=== PATIENT | female | born 1985 | race Caucasian/White ===

== ENCOUNTER → 2019-05-17 13:53 | Outpatient (CLI) | payer OTHER, SELFPAY ==
--- NOTE | 2019-05-17 | DI.US.S_ITS ---
PROCEDURE: US ABDOMEN COMPLETE INDICATIONS: UNSPECIFIED CIRRHOSIS TECHNIQUE: Real-time scanning was performed of the abdominal and retroperitoneal organs, with image documentation. COMPARISON: None. FINDINGS: Liver: Liver is normal in size and homogeneous in echotexture. Gallbladder: The gallbladder contains multiple polyps with the largest measuring up to 6 mm in size. No gallbladder wall thickening. No pericholecystic fluid. Negative sonographic Fleming's. Biliary ducts: Intrahepatic bile ducts are non-dilated. Extrahepatic bile duct caliber measures 5 mm. Normal is 6-7 mm or less in diameter, or 10 mm or less post-cholecystectomy. Pancreas: Visualized portions of the pancreas are sonographically normal. Spleen: Spleen is normal in size and homogeneous in echotexture. Kidneys: Kidneys are normal in size and echotexture. Right kidney measures 9.9 cm long; left kidney measures 11.2 cm long. No hydronephrosis or nephrolithiasis. However, there is mild increased echogenicity involving the bilateral renal medulla consistent with medullary nephrocalcinosis. No solid masses. Aorta: Visualized aorta is normal in caliber at less than 3 cm. Iliacs: Proximal common iliac arteries are normal in caliber at less than 2.5 cm. IVC: Intrahepatic inferior vena cava is patent. Miscellaneous: No free abdominal fluid. IMPRESSION: 1. Multiple gallbladder polyps measuring up to 6 mm in size. Based on size criteria, no specific imaging followup required. No evidence for acute cholecystitis. 2. Mild hyperechogenicity of the bilateral renal medulla possibly representing medullary nephrocalcinosis. Dictated by: Milton Velazquez M.D. on 05/17/2019 at 15:36 Approved by: Milton Velazquez M.D. on 05/17/2019 at 15:47
--- NOTE | 2019-05-17 | DI.RAD.S_ITS ---
PROCEDURE: XR SHOULDER LT MIN 2V INDICATIONS: LT SHOULDER PAIN TECHNIQUE: 3 views of the shoulder were acquired. COMPARISON: None. FINDINGS: Bones: No fractures or dislocations. No suspicious bony lesions. Visualized ribs appear intact. Soft tissues: No suspicious soft tissue calcifications. IMPRESSION: No significant osseous abnormality. Dictated by: Reginald VERA Interpreted: Steve Roy MD on 05/17/2019 at 15:00 Approved by: Steve Roy M.D. on 05/17/2019 at 15:40
== END ==
PROVIDERS: PCP Family Medicine; Visit Provider Family Medicine
DX: K74.60 Unspecified cirrhosis of liver (principal); M25.512 Pain in left shoulder; K82.4 Cholesterolosis of gallbladder
CPT/HCPCS: 73030; 76700

== ENCOUNTER → 2019-07-22 12:56 | Outpatient (CLI) | payer OTHER, SELFPAY ==
[2019-07-22 13:33] LABS: Appearance Urine UA CLEAR; Bilirubin Urine UA NEGATIVE (NEGATIVE); Color Urine UA YELLOW; Glucose Urine UA NEGATIVE (Negative); Ketones Urine UA NEGATIVE (NEGATIVE); Leukocyte Esterase Urine UA TRACE (NEGATIVE); Nitrite Urine UA NEGATIVE (Negative); Occult Blood Urine UA NEGATIVE (Negative); Protein Urine UA NEGATIVE (Negative); Specific Gravity Urine UA <=1.005 (1.000-1.035); Urobilinogen Urine UA 0.2 E.U./dL (0.2)
[2019-07-22 13:37] LABS: Add Manual Diff / Slide Review NO; Basophils Absolute Auto 0 /uL (0-100); Basophils Percent Auto 0.3 % (0-2); Eosinophils Absolute Auto 100 /uL (0-450); Eosinophils Percent Auto 1.4 % (2-4); Hematocrit 34.8 % (36-46); Hemoglobin 11.9 g/dL (12.0-16.0); Lymphocytes Absolute Auto 1700 /uL (1100-4500); Lymphocytes Percent Auto 16.2 % (25-40); Mean Corpuscular HGB Conc 34.3 % (30-36); Mean Corpuscular Hemoglobin 28.8 PG (26-34); Mean Corpuscular Volume 84.2 fL (80-100); Monocytes Absolute Auto 500 /uL (0-900); Monocytes Percent Auto 5.1 % (3-14); Neutrophils Absolute Auto 7900 /uL (1500-7000); Platelet Count 283 X10^3/uL (150-400); Red Blood Cell Count 4.13 X10^6/uL (4.0-5.2); Red Cell Distribution Width 13.2 % (11.6-14.8); White Blood Cell Count 10.3 X10^3/uL (4.5-11.0)
[2019-07-22 13:42] LABS: Bacteria Urine None Seen; RBC Urine None Seen (0-5/HPF)
[2019-07-22 13:43] LABS: Culture Indicated Urine Cult Not Indicated; WBC Urine 0-1/HPF (0-5/HPF)
[2019-07-22 14:44] LABS: Alanine Aminotransferase 20 IU/L (<35); Albumin Globulin Ratio 1.7 (1.0-2.8); Alkaline Phosphatase 56 U/L (38-126); Aspartate Aminotransferase 26 IU/L (14-36); Bilirubin Total 0.4 mg/dL (0.2-1.3); Bilirubin Unconjugated 0.3 mg/dL (0.0-1.1); Globulin 2.9 g/dL (1.7-4.1); Glucose 83 mg/dL (70-100); HEMOLYSIS < 15 (0-50); Total Protein 7.9 g/dL (6.3-8.2)
[2019-07-24 15:37] LABS: Hepatitis B Surface Antigen NEGATIVE s/c (NEGATIVE); Rubella Antibody IgG 3.7 IU/mL (>15)
[2019-07-24 15:51] LABS: HIV 1 & 2 Ab/Ag 4th Gen Combo NEGATIVE (NEGATIVE); Hep C Virus Ab w/Reflex Quant NEGATIVE s/c (NEGATIVE)
[2019-07-25 16:18] LABS: RPR Screen Nonreactive (Nonreactive)
== END ==
PROVIDERS: PCP Family Medicine
DX: K74.60 Unspecified cirrhosis of liver (principal); K76.0 Fatty (change of) liver, not elsewhere classified; O09.91 Supervision of high risk pregnancy, unspecified, first trimester; O09.511 Supervision of elderly primigravida, first trimester
CPT/HCPCS: 36415; 80055; 80076; 81003; 81015; 82947; 83036; 86787; 86803; 86850; 86900; 86901; 87389

== ENCOUNTER → 2019-08-17 14:08 | Outpatient (CLI) | payer OTHER, SELFPAY | PROVIDERS: PCP Family Medicine | DX: O09.519 Supervision of elderly primigravida, unspecified trimester (principal) | CPT/HCPCS: 36415; 81420 ==

== ENCOUNTER → 2019-08-28 12:23 | Outpatient (CLI) | payer OTHER, SELFPAY ==
[2019-08-30 16:13] LABS: Sequential Screen 1st Trimeste FINAL PENDING
== END ==
PROVIDERS: PCP Family Medicine
DX: Z34.01 Encounter for supervision of normal first pregnancy, first trimester (principal); Z36.0 Encounter for antenatal screening for chromosomal anomalies; Z3A.12 12 weeks gestation of pregnancy
CPT/HCPCS: 36415; 84163; 84702

== ENCOUNTER → 2019-09-25 12:14 | Outpatient (CLI) | payer OTHER, SELFPAY ==
[2019-09-29 13:03] LABS: Sequential Screen 2nd Trimeste SCREEN NEGATIVE
== END ==
PROVIDERS: PCP Family Medicine
DX: O09.519 Supervision of elderly primigravida, unspecified trimester (principal)
CPT/HCPCS: 36415; 82105; 82677; 84163; 84702; 86336

== ENCOUNTER → 2019-12-15 11:31 | Outpatient (CLI) | payer OTHER, SELFPAY ==
[2019-12-15 14:07] LABS: Hematocrit 27.8 % (36-46); Hemoglobin 9.4 g/dL (12.0-16.0); Mean Corpuscular HGB Conc 33.7 % (30-36); Mean Corpuscular Hemoglobin 26.1 PG (26-34); Mean Corpuscular Volume 77.6 fL (80-100); Platelet Count 323 X10^3/uL (150-400); Red Blood Cell Count 3.59 X10^6/uL (4.0-5.2); Red Cell Distribution Width 14.6 % (11.6-14.8); White Blood Cell Count 14.2 X10^3/uL (4.5-11.0)
[2019-12-15 14:46] LABS: Alanine Aminotransferase 11 IU/L (<35); Albumin 3.8 g/dL (3.5-5.0); Albumin Globulin Ratio 1.3 (1.0-2.8); Alkaline Phosphatase 72 U/L (38-126); Aspartate Aminotransferase 18 IU/L (14-36); BUN Creatinine Ratio 18.8 (6-22); Bilirubin Total 0.3 mg/dL (0.2-1.3); Blood Urea Nitrogen 12 mg/dL (7-17); Calcium 9.4 mg/dL (8.4-10.2); Carbon Dioxide 26 mmol/L (22-32); Chloride 95 mmol/L (98-107); Estimated Glomerular Filt Rate > 60.0 mL/min (>60); GTT (PREG) 1 Hour PP 50gm Dose 125 mg/dL (76-139); Globulin 2.9 g/dL (1.7-4.1); Glucose 125 mg/dL (70-100); HEMOLYSIS < 15 (0-50); Potassium 3.5 mmol/L (3.4-5.1); Sodium 131 mmol/L (137-145); Total Protein 6.7 g/dL (6.3-8.2)
== END ==
PROVIDERS: PCP Family Medicine; Referring Provider Obstetrics & Gynecology; Visit Provider Obstetrics & Gynecology
DX: Z34.02 Encounter for supervision of normal first pregnancy, second trimester (principal); K76.9 Liver disease, unspecified; Z3A.25 25 weeks gestation of pregnancy
CPT/HCPCS: 36415; 80053; 82950; 85027

== ENCOUNTER → 2020-01-04 09:47 | Outpatient (CLI) | payer OTHER, SELFPAY ==
--- NOTE | 2020-01-04 09:49 | DI.US.S_ITS ---
PROCEDURE: US ABDOMEN LIMITED INDICATIONS: CIRRHOSIS TECHNIQUE: Real-time focused scanning was performed of the abdomen, with image documentation. COMPARISON: [facility], US, US OB >= 14 WEEKS FETUS, 10/27/2019, 11:08. [facility], US, US ABDOMEN COMPLETE, 05/17/2019, 14:39. FINDINGS: The liver demonstrates normal size. The liver demonstrates a heterogeneous appearance, with a nodular contour. No findings of gallstones or sludge are seen. The gallbladder wall is not thickened, measuring 3 mm or less. Multiple bullet wall polyps are seen, which measure up to 11 mm. Gallbladder wall adenomyomatosis is also seen. No specific pericholecystic fluid is seen. The sonographic Fleming sign is negative. There is no biliary dilatation, the common bile duct measures 5 mm. No significant pancreatic abnormality is seen on these images. IMPRESSION: Cirrhotic appearing liver. Multiple gallbladder wall polyps are seen, which measure up to 11 mm. Dictated by: Issac Chaudhari M.D. on 01/04/2020 at 10:49 Approved by: Issac Chaudhari M.D. on 01/04/2020 at 10:51
== END ==
PROVIDERS: PCP Family Medicine
DX: O99.89 Other specified diseases and conditions complicating pregnancy, childbirth and the puerperium (principal); K74.60 Unspecified cirrhosis of liver; K82.4 Cholesterolosis of gallbladder; Z3A.30 30 weeks gestation of pregnancy
CPT/HCPCS: 76705

== ENCOUNTER → 2020-02-01 11:00 | Oncology outpatient (ONC) | payer OTHER, SELFPAY ==
[2020-01-18 11:21] VITALS: BP 117/77; PULSE 99; RESP 18; TEMP 36.8; O2SAT 99
[2020-01-18] MEDS: IRON SUCROSE 500 MG in SODIUM CHLORIDE 0.9% 250 ML 68.75 ML IV (11:32)
[2020-01-18 16:22] VITALS: BP 111/69; PULSE 92
--- NOTE | 2020-01-18 16:23 | PC.NURSE ---
pt reports shakiness 3/4 of iron infused. VSS, given apple juice and crackers.
[2020-02-01] MEDS: IRON SUCROSE 500 MG in SODIUM CHLORIDE 0.9% 250 ML 68.75 ML IV (12:00)
[2020-02-01 12:32] VITALS: BP 121/71; PULSE 87; RESP 18; TEMP 36.5; O2SAT 98
== END ==
PROVIDERS: PCP Family Medicine
DX: O99.013 Anemia complicating pregnancy, third trimester (principal)
CPT/HCPCS: 96365; 96366; 96374; 96375; 96376; J1756; J1885; J2590

== ENCOUNTER → 2020-02-16 16:05 | Outpatient (CLI) | payer OTHER, SELFPAY ==
[2020-02-16 16:46] LABS: Add Manual Diff / Slide Review NO; Basophils Absolute Auto 100 /uL (0-100); Basophils Percent Auto 0.5 % (0-2); Eosinophils Absolute Auto 100 /uL (0-450); Eosinophils Percent Auto 0.8 % (2-4); Hematocrit 34.7 % (36-46); Hemoglobin 11.2 g/dL (12.0-16.0); Lymphocytes Absolute Auto 2300 /uL (1100-4500); Lymphocytes Percent Auto 14.4 % (25-40); Mean Corpuscular HGB Conc 32.3 % (30-36); Mean Corpuscular Hemoglobin 25.4 PG (26-34); Mean Corpuscular Volume 78.7 fL (80-100); Monocytes Absolute Auto 1500 /uL (0-900); Monocytes Percent Auto 9.3 % (3-14); Neutrophils Absolute Auto 12000 /uL (1500-7000); Platelet Count 336 X10^3/uL (150-400); Red Blood Cell Count 4.41 X10^6/uL (4.0-5.2); Red Cell Distribution Width 24.6 % (11.6-14.8)
[2020-02-16 17:15] LABS: Alanine Aminotransferase 13 IU/L (<35)
[2020-02-16 17:50] LABS: Anisocytosis 3+
[2020-02-17 12:50] LABS: Strep Grp B PCR NEG for Grp B Strep
== END ==
PROVIDERS: PCP Family Medicine
DX: Z34.83 Encounter for supervision of other normal pregnancy, third trimester (principal); K74.60 Unspecified cirrhosis of liver; Z3A.36 36 weeks gestation of pregnancy
CPT/HCPCS: 36415; 84460; 85025; 87653

== ENCOUNTER → 2020-02-29 15:34 | Outpatient (CLI) | payer OTHER, SELFPAY ==
[2020-02-29 16:50] LABS: COVID19 -Nasal RAPID Negative (Negative)
== END ==
PROVIDERS: PCP Family Medicine; Visit Provider Physician Assistant
DX: Z11.9 Encounter for screening for infectious and parasitic diseases, unspecified (principal)
CPT/HCPCS: 87635

== ENCOUNTER 2020-03-01 11:36 | Inpatient (IN) | payer OTHER, SELFPAY ==
[2020-03-01 11:43] VITALS: BP 118/75
[2020-03-01] MEDS: LACTATED RINGERS 1,000 ML 100 ML IV ×3 (12:20→20:19)
[2020-03-01 12:37] LABS: Add Manual Diff / Slide Review NO; Basophils Absolute Auto 100 /uL (0-100); Basophils Percent Auto 0.9 % (0-2); Eosinophils Absolute Auto 100 /uL (0-450); Eosinophils Percent Auto 0.4 % (2-4); Hematocrit 36.9 % (36-46); Hemoglobin 11.9 g/dL (12.0-16.0); Lymphocytes Absolute Auto 2300 /uL (1100-4500); Lymphocytes Percent Auto 13.7 % (25-40); Mean Corpuscular HGB Conc 32.4 % (30-36); Mean Corpuscular Hemoglobin 25.5 PG (26-34); Mean Corpuscular Volume 78.6 fL (80-100); Monocytes Absolute Auto 1300 /uL (0-900); Monocytes Percent Auto 7.7 % (3-14); Neutrophils Absolute Auto 12700 /uL (1500-7000); Neutrophils Percent Auto 77.3 % (50-75); Platelet Count 356 X10^3/uL (150-400); Red Blood Cell Count 4.69 X10^6/uL (4.0-5.2); Red Cell Distribution Width 23.6 % (11.6-14.8); White Blood Cell Count 16.5 X10^3/uL (4.5-11.0)
[2020-03-01] MEDS: CEFOTETAN 2 GM/50 ML PIGGYBACK IV (12:37)
--- NOTE | 2020-03-01 12:38 | PM.OBHP.1 ---
OB HPI Date/Time Date of admission: 03/01/20 Date Patient Seen: 03/01/20 Time Patient Seen: 12:38 History of Present Condition Chief complaint: [facility] : 1 Para: 0 Estimated Date of Delivery: 03/07/20 Estimated Gestational Age (weeks): 39 1 Narrative: Risa Leon is a 34 year old female with a persistent footling breech presentation. In addition patient has cirrhosis of the liver normal liver function tests and a normal sized liver. Laboratory studies are normal History of Present care: good care Dating criteria: LMP confirmed by 1st trimester US Ultrasounds: normal 1st trimester US and normal mid trimester US Medical complications: gastrointestinal (Cirrhosis of the liver) Narrative: Patient is a 34-year-old white female one para 0 with longstanding liver problem Sallie current footling breech presentation at 39 weeks of . Evaluation Evaluation Laboratory results: Laboratory Tests 03/01/20 12:25 WBC 16.5 H RBC 4.69 Hgb 11.9 L Hct 36.9 MCV 78.6 L MCH 25.5 L MCHC 32.4 RDW 23.6 H Plt Count 356 Neut % (Auto) 77.3 H Lymph % (Auto) 13.7 L Bacon % (Auto) 7.7 Eos % (Auto) 0.4 L Baso % (Auto) 0.9 Neut # (Auto) 14796 H Lymph # (Auto) 2300 Bacon # (Auto) 1300 H Eos # (Auto) 100 Baso # (Auto) 100 PFSH Medical History Abnormal colonoscopy (Acute ~2010) Breast reconstruction deformity (Acute ~2007) Chicken pox (Resolved ~1987) Cirrhosis (Chronic ~2010) Colon polyps (Acute ~2010) Gastric polyps (Acute) Gastric ulcer (Acute) Headache (Chronic ~1996) Kidney failure (Chronic ~2010) Liver failure (Acute ~2010) Migraines (Chronic ~1998) Shoulder pain (Chronic ~2018) Surgical History Anesthesia (Resolved) History of breast reconstruction (Acute ~2002) History of endoscopy (Acute) [place] teeth extracted (Acute ~2006) Family History Sister Diabetes mellitus Stroke Grandfather Diabetes mellitus Grandmother Congestive heart failure Grandfather Cancer Father Hypertension Hyperlipidemia Mother Hypertension Social History marital status: household members: spouse pets and animals: Yes occupational status: employed current occupational exposures/hazards: No special dony needs: No Smoking Status: Former smoker Meds Home Medications and Allergies Home Medications Medication Instructions Recorded Confirmed Type amiloride 5 mg tablet 5 mg PO DAILY 07/24/19 03/01/20 History furosemide 80 mg tablet 80 mg PO DAILY 07/24/19 03/01/20 History prenat.vits,mariah,qqo-llnd-[id number] 1 tab PO DAILY 07/24/19 03/01/20 History Allergies Allergy/AdvReac Type Severity Reaction Status Date / Time acetaminophen [From Percocet] Allergy Intermediate Hives Verified 02/29/20 16:08 hydromorphone [From Dilaudid] Allergy Intermediate Hives Verified 02/29/20 16:08 NSAIDS (Non-Steroidal Allergy Intermediate Hives Verified 02/29/20 16:08 Anti-Inflamma Opioids - Morphine Analogues Allergy Intermediate Hives Verified 02/29/20 16:08 oxycodone [From Percocet] Allergy Intermediate Hives Verified 02/29/20 16:08 Penicillins Allergy Intermediate Hives Verified 02/29/20 16:08 morpine Allergy Intermediate Hives Uncoded 02/29/20 16:08 Review of Systems Review of Systems ROS: Yes All systems reviewed with the patient and are negative except as otherwise documented Exam Const General: cooperative and healthy appearing [facility] Head: normal to inspection Ears: hearing grossly normal bilaterally Nose: external nose normal Face and sinus: normal facial exam Mouth: oral mucosae normal, lip normal, tongue normal and moist mucous membranes Teeth and gingiva: dentition normal Throat: posterior oropharynx normal Eyes General: appearance normal, both eyes and all related structures Neck Neck: normal visual inspection and full ROM Chest Chest: normal inspection of the chest and normal palpation of entire chest wall Breast inspection: normal inspection of the breasts and normal inspection of the axillae Breast Palpation: normal palpation of the breasts and normal palpation of the axillae Resp Effort & Inspection: normal respiratory effort Auscultation: clear to auscultation bilaterally Cardio Palpation: normal PMI Rate: regular rate Rhythm: regular rhythm Heart Sounds: S1 normal and S2 normal GI Inspection: normal to inspection Palpation: soft and no hepatosplenomegaly Percussion: normal to percussion Auscultation: normal bowel sounds OB/External & Speculum: external exam normal Manual OB Exam: dilated (Not dilated) and effaced Uterus Location (Fundal Height): 38 Presentation: double footling breech Estimated Weight (lbs): 8 Back/Spine/Pelvis Thoracic/Lumbar Spine: thoracic and lumbar spine normal to inspection Skin General: no rashes or lesions noted Neuro General: patient alert, patient oriented x3, tone normal and moves all extremities Cognition: normal cognition Speech: speech normal Gait: normal gait Motor: muscle tone normal throughout Sensory Exam: no sensory deficits noted Extrem General: normal to inspection and normal exam except as noted Psych Appearance: grossly normal and well kempt Mental Status: mental status grossly normal Speech and Movement: speech and movement normal Objective Labs Result Diagrams: 03/01/20 12:25 03/01/20 12:25 Labs: Laboratory Results - last 24 hr 03/01/20 12:25 WBC 16.5 H RBC 4.69 Hgb 11.9 L Hct 36.9 MCV 78.6 L MCH 25.5 L MCHC 32.4 RDW 23.6 H Plt Count 356 Neut % (Auto) 77.3 H Lymph % (Auto) 13.7 L Bacon % (Auto) 7.7 Eos % (Auto) 0.4 L Baso % (Auto) 0.9 Neut # (Auto) 81986 H Lymph # (Auto) 2300 Bacon # (Auto) 1300 H Eos # (Auto) 100 Baso # (Auto) 100 Assessment and Plan Assessment and Plan Assessment and Plan narrative: Term intrauterine 39 weeks Footling breech presentation Plan is for primary section
[2020-03-01 12:51] LABS: Alanine Aminotransferase 15 IU/L (<35); Albumin 3.8 g/dL (3.5-5.0); Albumin Globulin Ratio 1.2 (1.0-2.8); Alkaline Phosphatase 129 U/L (38-126); Aspartate Aminotransferase 23 IU/L (14-36); BUN Creatinine Ratio 23.5 (6-22); Bilirubin Total 0.3 mg/dL (0.2-1.3); Blood Urea Nitrogen 16 mg/dL (7-17); Calcium 9.4 mg/dL (8.4-10.2); Carbon Dioxide 22 mmol/L (22-32); Chloride 103 mmol/L (98-107); Estimated Glomerular Filt Rate > 60.0 mL/min (>60); Globulin 3.2 g/dL (1.7-4.1); Glucose 80 mg/dL (70-100); HEMOLYSIS < 15 (0-50); Potassium 4.1 mmol/L (3.4-5.1); Sodium 135 mmol/L (137-145)
[2020-03-01 12:57] LABS: Anisocytosis 2+; Microcytosis 1+
--- NOTE | 2020-03-01 14:07 | SUR.OPER ---
Supine on Padded OR bed, head on pillow, safety belt at thigh, arms secured on padded arm boards at <90 degrees abduction. Bump under right buttock. Legs uncrossed with pillow under knees, gel pad to heels, tape over blanket to lower legs.
--- NOTE | 2020-03-01 14:09 | SUR.OPER ---
Viable female delivered at 14:08. Cord blood vials x2 and placenta sent with L&D RN.
--- NOTE | 2020-03-01 14:41 | P.OP_ITS ---
Operative Date/Time/Diagnoses Date of procedure: 03/01/20 Time of procedure: 14:41 Pre-op diagnosis: Term intrauterine /footling breech presentation/cirrhosis of the liver Post-op diagnosis: same Procedure & Clinicians Procedure: Procedures Operation Date: 03/01/20 13:30 Actual Procedures Side Surgeon p Section Kodak Adler MD Indications: Term intrauterine Footling breech presentation Cirrhosis of the liver Surgeon: Kodak Adler Prefabricated Houses Trimmer: Kathy Valentin Anesthesia Type: Spinal Operative Notes Findings: Normal uterus tubes and ovaries/live-born female in Closure Type: primary Specimen(s): none Estimated blood loss (mL): 500 Blood products transfused: none Procedure in detail: The patient was placed supine operating table and spinal anesthesia was administered. Patient was then draped and prepared in usual fashion. Abdominal markings were made preoperatively. Transverse lower abdominal incision was then made. Subcutaneous tissue was incised to the fascia. All bleeders were meticulously fulgurated. Fascia was incised with a sharp knife. Private else muscles were incised in the midline and this was widened by blunt finger dissection. Perineum was picked up and incised and this was widened by blunt finger dissection. There was a large vein over the lower uterine segment so the approach transversely a bit above this vein. Bladder flap was taken down sharply. Transverse scoring incision was made across the lower uterine segment. Referring incision was made centrally. Membranes ruptured and the fluid was clear. The feet were grasped and live-born female delivered by the Marseau maneuver without difficulties. Initial scores were seven at 1 minute nine at 5 minutes. Respiratory therapy and nursing were in attendance appear oz infant normal in good condition. Cord blood was obtained. Placenta was removed manually. All membranes were massaged from the endometrial cavity. Lateral edges of the uterine incision were grasped with [place] clamps. Uterine incision was closed in an imbricating fashion using a two layer technique with 1. Chromic suture. No bleeding points were seen. Visceral peritoneum with was with a running two 0 chromic suture. Tubes and ovaries appeared to be normal. The parietal perineum was grasped and closed with running two 0 chromic suture. Pyramidalisa muscles were reapproximated the midline with 1. Vicryl suture. Fascia was closed with two continuous 1. Vicryl sutures. Area was copiously irrigated. Subcutaneous tissue was closed in two layers. 1st layer was closed with interrupted three 0 Vicryl suture. 2nd layer was closed is threes Vicryl suture. The skin was closed with Steri-Strips. An Aquacel dressing was placed. No bleeding points were seen. Uterine was saw showed very little vaginal drainage. An Aquacel dressing was placed. Urine was clear. Patient was taken to the recovery room in satisfactory conveys
[2020-03-01 14:45] VITALS: BP 119/77; PULSE 71; RESP 13; TEMP 36.1; O2SAT 100
[2020-03-01 14:50] VITALS: BP 106/73; PULSE 71; RESP 12; O2SAT 100
[2020-03-01 14:55] VITALS: BP 119/75; PULSE 79; RESP 12; O2SAT 100
[2020-03-01 15:00] VITALS: BP 119/64; PULSE 69; RESP 17; O2SAT 100
[2020-03-01] MEDS: OXYCODONE IR 5 MG TABLET PO (16:30)
[2020-03-01] MEDS: OXYCODONE IR 5 MG TABLET 10 MG PO ×2 (17:34→21:48)
[2020-03-01] MEDS: KETOROLAC 30 MG/ML VIAL IV (20:18)
[2020-03-01] MEDS: FUROSEMIDE 40 MG TABLET 80 MG PO (22:04)
--- NOTE | 2020-03-01 22:07 | PC.NURSE ---
Not able to access Amiloride in pysis or nightime. Called Dr Adler @[phone] he is aware of pharmacy policy but has Ok pt to take her own medication tonight.
[2020-03-02] MEDS: OXYCODONE IR 5 MG TABLET 10 MG PO ×6 (02:02→22:18)
[2020-03-02] MEDS: KETOROLAC 30 MG/ML VIAL IV ×2 (02:02→07:38)
[2020-03-02 06:59] LABS: Add Manual Diff / Slide Review NO; Basophils Absolute Auto 0 /uL (0-100); Basophils Percent Auto 0.4 % (0-2); Eosinophils Absolute Auto 100 /uL (0-450); Eosinophils Percent Auto 0.9 % (2-4); Hematocrit 33.1 % (36-46); Hemoglobin 10.8 g/dL (12.0-16.0); Lymphocytes Absolute Auto 1300 /uL (1100-4500); Mean Corpuscular HGB Conc 32.7 % (30-36); Mean Corpuscular Hemoglobin 26.1 PG (26-34); Mean Corpuscular Volume 79.8 fL (80-100); Monocytes Absolute Auto 800 /uL (0-900); Monocytes Percent Auto 6.9 % (3-14); Neutrophils Absolute Auto 8800 /uL (1500-7000); Neutrophils Percent Auto 79.8 % (50-75); Platelet Count 331 X10^3/uL (150-400); Red Blood Cell Count 4.15 X10^6/uL (4.0-5.2); Red Cell Distribution Width 24.3 % (11.6-14.8)
--- NOTE | 2020-03-02 09:19 | PM.OBPN.1 ---
Subjective - OB Subjective Patient comments: no complaints [place] baby status: doing well [place] feeding status: exclusively breast feeding Narrative: Patient is approximately 18 hours post primary section and doing well ideas been discontinued. She is taking p.o.. She is ambulating. Grande is still in place Date Patient Seen: 03/02/20 Time Patient Seen: 09:20 Interval history: Patient is approximately 10 hours post primary section and doing well. IV has been discontinued is taking p.o. well. She is ambulating. Grande still in place. Exam Vital Signs (past 8 hours): Oxygen Delivery Method Room Air Narrative Exam Narrative: Fundus is U minus three Aquacel dressing Lochia scant Objective Labs Result Diagrams: 03/02/20 06:48 03/01/20 12:25 Labs: Laboratory Results - last 24 hr 03/01/20 03/01/20 03/01/20 12:25 12:25 12:25 WBC 16.5 H RBC 4.69 Hgb 11.9 L Hct 36.9 MCV 78.6 L MCH 25.5 L MCHC 32.4 RDW 23.6 H Plt Count 356 Neut % (Auto) 77.3 H Lymph % (Auto) 13.7 L [place] % (Auto) 7.7 Eos % (Auto) 0.4 L Baso % (Auto) 0.9 Neut # (Auto) 97021 H Lymph # (Auto) 2300 [place] # (Auto) 1300 H Eos # (Auto) 100 Baso # (Auto) 100 RBC Morphology See below Anisocytosis 2+ H Microcytosis 1+ H Sodium 135 L Potassium 4.1 Chloride 103 Carbon Dioxide 22 BUN 16 Creatinine 0.68 Estimated GFR > 60.0 BUN/Creatinine Ratio 23.5 H Glucose 80 Calcium 9.4 Total Bilirubin 0.3 AST 23 ALT 15 Alkaline Phosphatase 129 H Total Protein 7.0 Albumin 3.8 Globulin 3.2 Albumin/Globulin Ratio 1.2 Blood Type A Positive Antibody Screen Negative 03/02/20 06:48 WBC 11.0 RBC 4.15 Hgb 10.8 L Hct 33.1 L MCV 79.8 L MCH 26.1 MCHC 32.7 RDW 24.3 H Plt Count 331 Neut % (Auto) 79.8 H Lymph % (Auto) 12.0 L [place] % (Auto) 6.9 Eos % (Auto) 0.9 L Baso % (Auto) 0.4 Neut # (Auto) 8800 H Lymph # (Auto) 1300 [place] # (Auto) 800 Eos # (Auto) 100 Baso # (Auto) 0 RBC Morphology Anisocytosis Microcytosis Sodium Potassium Chloride Carbon Dioxide BUN Creatinine Estimated GFR BUN/Creatinine Ratio Glucose Calcium Total Bilirubin AST ALT Alkaline Phosphatase Total Protein Albumin Globulin Albumin/Globulin Ratio Blood Type Antibody Screen Assessment & Plan Assessment and Plan (1) Status post section: Status: Acute Plan day: 1 plan OB: routine postop care Comments: No problems Time Spent With Patient Time: Total time spent is greater than 50% in coordination of care (as documented) at patient's floor/unit and/or counseling patient: Time with patient: less than 15 minutes
[2020-03-02] MEDS: DOCUSATE 250 MG CAPSULE PO (09:21)
[2020-03-02] MEDS: FERROUS GLUCONATE 324 MG TABLET PO (09:21)
[2020-03-02] MEDS: FUROSEMIDE 40 MG TABLET 80 MG PO ×2 (09:21→16:53)
[2020-03-02] MEDS: PRENATAL VIT,CALC/IRON/FOLIC 1 TABLET 1 TAB PO (09:21)
[2020-03-02 09:40] LABS: Anisocytosis 2+
[2020-03-02 16:07] VITALS: BP 122/72; PULSE 76; RESP 18; TEMP 37.6
[2020-03-02] MEDS: NAPROXEN 250 MG TABLET 500 MG PO (17:55)
[2020-03-02] MEDS: AMILORIDE 5MG TABLET 1 EACH PO (22:20)
[2020-03-03] MEDS: OXYCODONE IR 5 MG TABLET 10 MG PO ×4 (01:55→13:59)
[2020-03-03] MEDS: DOCUSATE 250 MG CAPSULE PO (08:02)
[2020-03-03] MEDS: FUROSEMIDE 40 MG TABLET 80 MG PO (08:02)
[2020-03-03] MEDS: NAPROXEN 250 MG TABLET 500 MG PO (08:03)
--- NOTE | 2020-03-03 09:11 | PM.OBDS.1 ---
Discharge Providers Provider Date of admission: 03/01/20 11:36 Discharge Date: 03/03/20 Primary care physician: Sathish Odom MD Consults: 03/01/20 16:07 Consult to Batch Plant Supervisor Routine Comment: Discharge provider: Kodak Adler MD Summary Hospital Course Date Patient Seen: 03/03/20 Time Patient Seen: 09:11 Procedures: Spinal anesthesia Primary low segment section courtesy Hospital Course: The patient is a 34-year-old white female one now para one with a footling breech fat term. Patient addition to that has cirrhosis of the liver but normal laboratory studies including an INR. The patient was taken to surgery and underwent a primary low segment section. She was delivered of a live-born female 7 lb 14 oz with scores of seven at 1 minutes and nine at 5 minutes in good condition. Postoperatively the patient did well. She remained afebrile with stable vital signs and was progressively ambulated. She was taking p.o. well. She was voiding in good volumes. Her bleeding was minimal Peripartum Data complications: none Discharge Diagnosis (1) Status post section: Status: Acute Status at Discharge Cognitive/behavioral status at discharge: oriented Functional status at discharge: independent ambulation Overall status at discharge: patient is progressing back to baseline Time Spent with Patient Time attestation: Total time spent providing and/or coordinating discharge services: Time spent: Less than 30 minutes Objective Labs Result Diagrams: 03/02/20 06:48 03/01/20 12:25 Labs: Laboratory Results - last 24 hr 03/02/20 06:48 RBC Morphology See below Anisocytosis 2+ H Exam Vital Signs (past 8 hours): Oxygen Delivery Method Room Air Narrative Exam Narrative: Fundus is U minus three Aquacel dressing in place Lochia scant Discharge Plan Discharge Plan Patient Disposition: Home Discharge orders & Medications Prescriptions: New oxycodone 5 mg Tablet 10 mg PO Q4HR PRN (Reason: Pain, Severe (7-10)) Qty: 10 RF: 0 Hng-D-Bljvic Cream 1 applic topical PRN PRN (Reason: ) Qty: 1 RF: 0 docusate sodium 250 mg Capsule 250 mg PO DAILY Qty: 14 RF: 0 naproxen 250 mg Tablet 500 mg PO BIDWM Qty: 20 RF: 0 Continued amiloride 5 mg tablet 5 mg PO DAILY RF: 0 prenat.vits,mariah,[id number]-htjo-mhksv Tablet 1 tab PO DAILY RF: 0 furosemide [Lasix] 80 mg tablet 80 mg PO DAILY RF: 0 Follow up/Referrals: Sathish Odom MD [Primary Care Provider] - Kodak Adler MD [Physician] - 03/08/20 Discharge Health Status Multidrug resistant organism: No MDRO Diet/Activity/Treatments Diet: Diet as Tolerated Skin/Wound/Dressing Care Skin care: Aquacel dressing Report to your healthcare provider any signs of infection, such as:: chills, fever, increased pain, unusual drainage and unusual redness Dressing: Aquacel dressing removed next Wednesday Visit Report/Discharge Packet Instructions: DI for Prescription Opioid Use Discharge Data Primary Care Provider: Sathish Odom
== END 2020-03-03 14:34 | disposition home or self-care (01) | DRG 788 ==
PROVIDERS: PCP Family Medicine
PROC: 10D00Z1 Extraction of Products of Conception, Low, Open Approach (ICD-10-PCS; CPT 59514; principal; 2020-03-01 13:30)
DX: O32.1XX0 Maternal care for breech presentation, not applicable or unspecified (principal); Z3A.39 39 weeks gestation of pregnancy; Z37.0 Single live birth; K74.60 Unspecified cirrhosis of liver; Z11.59 Encounter for screening for other viral diseases
CPT/HCPCS: 36415; 59510; 59514; 80053; 85025; 86850; 86900; 86901; 87635; J1885

== ENCOUNTER → 2020-04-12 16:05 | Outpatient (CLI) | payer OTHER, SELFPAY ==
--- NOTE | 2020-04-12 16:06 | DI.US.S_ITS ---
PROCEDURE: US ABDOMEN COMPLETE INDICATIONS: Abdominal pain R/O umbilical hernia TECHNIQUE: Real-time scanning was performed of the abdominal and retroperitoneal organs, with image documentation. COMPARISON: [facility], US, US ABDOMEN COMPLETE, 05/17/2019, 14:39. FINDINGS: Liver: Liver is normal in size and homogeneous in echotexture. Gallbladder: 2 polyps are seen in the gallbladder measuring up to 8 mm in maximum dimension, not significantly changed when compared to the prior ultrasound from 05/17/2019. No gallbladder wall thickening or pericholecystic fluid is seen. Biliary ducts: Intrahepatic bile ducts are non-dilated. Extrahepatic bile duct caliber measures 3 mm. Normal is 6-7 mm or less in diameter, or 10 mm or less post-cholecystectomy. Pancreas: Visualized portions of the pancreas are sonographically normal. Spleen: Spleen is normal in size and homogeneous in echotexture. Kidneys: Kidneys are normal in size and echotexture. Right kidney measures 10.4 cm long; left kidney measures 12.4 cm long. No hydronephrosis or nephrolithiasis. No solid masses. Aorta: Visualized aorta is normal in caliber at less than 3 cm. Iliacs: Proximal common iliac arteries are normal in caliber at less than 2.5 cm. IVC: Intrahepatic inferior vena cava is patent. Miscellaneous: No free abdominal fluid. A small periumbilical hernia is seen in the area of palpable neck containing peristalsing bowel. Hernia neck measures 1 x 1.1 cm. IMPRESSION: 1. Small periumbilical hernia containing fat and a loop of bowel. 2. Stable gallbladder wall polyps measuring up to 8 mm. Recommend continued annual surveillance. Dictated by: Matthew Rehman M.D. on 04/12/2020 at 21:46 Approved by: Matthew Rehman M.D. on 04/12/2020 at 21:50
== END ==
PROVIDERS: PCP Family Medicine; Referring Provider Obstetrics & Gynecology; Visit Provider Obstetrics & Gynecology
DX: R10.9 Unspecified abdominal pain (principal); K82.4 Cholesterolosis of gallbladder; K42.9 Umbilical hernia without obstruction or gangrene; Z98.891 History of uterine scar from previous surgery
CPT/HCPCS: 76700

== ENCOUNTER → 2020-06-14 16:17 | Outpatient (CLI) | payer OTHER, SELFPAY ==
--- NOTE | 2020-06-14 | DI.MRI.S_ITS ---
PROCEDURE: MR SHOULDER LT WO CON INDICATIONS: Pain in left shoulder TECHNIQUE: Noncontrast oblique coronal T2 fast spin echo with fat saturation, oblique sagittal T1 spin echo and T2 fast spin echo with fat saturation, axial T1 spin echo and T2 fast spin echo with fat saturation through the shoulder. COMPARISON: [facility], CR, XR SHOULDER LT MIN 2V, 05/17/2019, 14:17. FINDINGS: Image quality: Partially degraded by motion artifact. Rotator cuff: The supraspinatus, infraspinatus, and subscapularis tendons appear intact throughout. Sagittal images demonstrate no muscle atrophy. Bones and bursae: No bone marrow contusions or fractures. Mild acromioclavicular joint degeneration. The acromion demonstrates conventional anatomy, without an os acromiale. No pathologic subacromial-subdeltoid or subcoracoid bursal fluid is present. Capsule and soft tissues: In the absence of intra-articular contrast, the labrum and glenohumeral ligaments appear intact. The long head of the biceps tendon demonstrates normal location and morphology. The rotator interval appears normal, without fibrosis. The coracohumeral ligament is normal in thickness. IMPRESSION: 1. No rotator cuff tear. 2. No explanation for shoulder pain. Dictated by: Adalgisa Sahni M.D. on 06/14/2020 at 16:29 Approved by: Adalgisa Sahni M.D. on 06/14/2020 at 16:30
== END ==
PROVIDERS: PCP Family Medicine; Referring Provider Family Medicine; Visit Provider Family Medicine
DX: M25.512 Pain in left shoulder (principal)
CPT/HCPCS: 73221

== ENCOUNTER → 2021-05-01 11:12 | Outpatient (CLI) | payer OTHER, SELFPAY ==
--- NOTE | 2021-05-01 11:14 | DI.US.S_ITS ---
PROCEDURE: US OB <= 14 WEEKS FETUS INDICATIONS: DATING AND VIABILITY OUTSIDE/PRIOR DATING DATA: Last menstrual period (LMP): Not known LMP-based estimated date of delivery (TREV): Not known. First dating scan (date and location): 05/01/2021. [facility]. Estimated date of delivery (TREV) from first dating scan: 12/20/2021. TECHNIQUE: Real-time scanning was performed of the fetus and maternal pelvic organs, with image documentation. Endovaginal scanning was also performed to better visualize the fetus and maternal ovaries. COMPARISON: [facility], , OB <= 14 WEEKS FETUS, 08/28/2019, 12:08. FINDINGS: Embryo: A yolk sac is identified. A pole with a crown-rump length of 0.8 centimeters corresponds with 6 weeks 5 days gestation. Heart rate: 133 Measurement variability in dating: +/- 4 weeks by LMP, +/- 7 days by mean sac diameter (use before 6 weeks gestation if crown-rump length not able to be measured), +/- 5 days by crown-rump length (up to 8 weeks 6 days gestation), +/- 7 days by crown-rump length (up to 13 weeks 6 days gestation). Maternal organs: A right ovarian simple cyst measures 3.2 x 3.3 x 1.8 centimeters. A left ovarian cyst, probably a corpus luteal cyst measures 0.3 x 1.5 x 1.5 centimeters. IMPRESSION: 1. Single live intrauterine with gestational age of 6 weeks 5 days. 2. Simple right ovarian cyst. 3. Probable left corpus luteal cyst. Dictated by: Ilya Aponte M.D. on 05/01/2021 at 17:00 Approved by: Ilya Aponte M.D. on 05/01/2021 at 17:02
== END ==
PROVIDERS: PCP Family Medicine; Referring Provider Obstetrics & Gynecology; Visit Provider Obstetrics & Gynecology
DX: Z34.81 Encounter for supervision of other normal pregnancy, first trimester (principal); Z3A.01 Less than 8 weeks gestation of pregnancy; N83.201 Unspecified ovarian cyst, right side
CPT/HCPCS: 76801; 76817

== ENCOUNTER → 2021-05-09 12:14 | Outpatient (CLI) | payer OTHER, SELFPAY ==
[2021-05-09 14:21] LABS: Urine N gonorrhoeae NOT DETECTED
[2021-05-09 14:23] LABS: Urine Chlamydia NOT DETECTED
== END ==
PROVIDERS: PCP Family Medicine; Referring Provider Obstetrics & Gynecology; Visit Provider Obstetrics & Gynecology
DX: Z34.81 Encounter for supervision of other normal pregnancy, first trimester (principal); Z3A.01 Less than 8 weeks gestation of pregnancy
CPT/HCPCS: 87491; 87591

== ENCOUNTER → 2021-05-26 16:06 | Outpatient (CLI) | payer OTHER, SELFPAY ==
[2021-05-26 16:49] LABS: Appearance Urine UA CLEAR; Bilirubin Urine UA NEGATIVE (NEGATIVE); Color Urine UA YELLOW; Glucose Urine UA NEGATIVE (Negative); Ketones Urine UA NEGATIVE (NEGATIVE); Leukocyte Esterase Urine UA NEGATIVE (NEGATIVE); Nitrite Urine UA NEGATIVE (Negative); Occult Blood Urine UA NEGATIVE (Negative); Protein Urine UA NEGATIVE (Negative); Specific Gravity Urine UA <=1.005 (1.000-1.035); Urobilinogen Urine UA 0.2 E.U./dL (0.2)
[2021-05-26 16:51] LABS: Add Manual Diff / Slide Review NO; Basophils Absolute Auto 100 /uL (0-100); Basophils Percent Auto 0.8 % (0-2); Eosinophils Absolute Auto 400 /uL (0-450); Eosinophils Percent Auto 3.6 % (2-4); Hematocrit 34.3 % (36-46); Hemoglobin 11.8 g/dL (12.0-16.0); Lymphocytes Absolute Auto 1800 /uL (1100-4500); Lymphocytes Percent Auto 17.7 % (25-40); Mean Corpuscular HGB Conc 34.3 % (30-36); Mean Corpuscular Hemoglobin 27.1 PG (26-34); Mean Corpuscular Volume 78.9 fL (80-100); Monocytes Absolute Auto 500 /uL (0-900); Monocytes Percent Auto 5.3 % (3-14); Neutrophils Absolute Auto 7500 /uL (1500-7000); Neutrophils Percent Auto 72.6 % (50-75); Platelet Count 290 X10^3/uL (150-400); Red Blood Cell Count 4.35 X10^6/uL (4.0-5.2); Red Cell Distribution Width 14.9 % (11.6-14.8); White Blood Cell Count 10.3 X10^3/uL (4.5-11.0)
[2021-05-26 16:53] LABS: pH Urine UA 6.5 (4.5-8.0)
[2021-05-26 17:24] LABS: Alanine Aminotransferase 11 IU/L (<35); Albumin 4.5 g/dL (3.5-5.0); Albumin Globulin Ratio 1.5 (1.0-2.8); Alkaline Phosphatase 40 U/L (38-126); Aspartate Aminotransferase 18 IU/L (14-36); Bilirubin Total 0.3 mg/dL (0.2-1.3); Bilirubin Unconjugated 0.2 mg/dL (0.0-1.1); Globulin 3.1 g/dL (1.7-4.1); HEMOLYSIS < 15 (0-50); Total Protein 7.6 g/dL (6.3-8.2)
[2021-05-26 17:54] LABS: Hepatitis B Surface Antigen NEGATIVE s/c (NEGATIVE)
[2021-05-26 18:11] LABS: HIV 1 & 2 Ab/Ag 4th Gen Combo NEGATIVE (NEGATIVE); Hep C Virus Ab w/Reflex Quant NEGATIVE s/c (NEGATIVE)
[2021-05-27 06:05] LABS: Varicella IgG Antibody 1011 index (Immune >165)
[2021-06-07 14:19] LABS: Rubella Antibody IgG 3.3 IU/mL (>15)
[2021-07-10 20:02] LABS: RPR Screen REACTIVE
== END ==
PROVIDERS: PCP Family Medicine; Referring Provider Obstetrics & Gynecology; Visit Provider Obstetrics & Gynecology
DX: Z34.81 Encounter for supervision of other normal pregnancy, first trimester (principal); K74.60 Unspecified cirrhosis of liver; K75.81 Nonalcoholic steatohepatitis (NASH)
CPT/HCPCS: 36415; 80055; 80076; 81003; 86787; 86803; 86850; 86870; 86880; 86900; 86901; 87086; 87389

== ENCOUNTER → 2021-05-28 17:05 | Outpatient (CLI) | payer OTHER, SELFPAY ==
[2021-05-28 18:42] LABS: Collection Time Urine 24 Hours; Creatinine 24 Hour Urine 887 mg/day (800-1800); Creatinine Urine Random 28.6 mg/dL; Protein (Total) Urine Random 12 mg/dL (0-12); Total Protein 24 Hour Urine 372 mg/day (42-225); Total Volume Urine 3100 mL
== END ==
PROVIDERS: PCP Family Medicine; Referring Provider Obstetrics & Gynecology; Visit Provider Obstetrics & Gynecology
DX: Z34.81 Encounter for supervision of other normal pregnancy, first trimester (principal); K74.60 Unspecified cirrhosis of liver; K75.81 Nonalcoholic steatohepatitis (NASH)
CPT/HCPCS: 82570; 84156

== ENCOUNTER → 2021-05-30 14:48 | Outpatient (CLI) | payer OTHER, SELFPAY | PROVIDERS: PCP Family Medicine; Referring Provider Obstetrics & Gynecology; Visit Provider Obstetrics & Gynecology | DX: O09.521 Supervision of elderly multigravida, first trimester (principal); Z36.0 Encounter for antenatal screening for chromosomal anomalies | CPT/HCPCS: 36415; 81420 ==

== ENCOUNTER → 2021-07-16 15:25 | Outpatient (CLI) | payer OTHER, SELFPAY ==
[2021-07-17 21:38] LABS: Treponema pallidum Antibodies Non Reactive (Non Reactive)
[2021-07-18 18:47] LABS: Gest Age on Col Date 17.6 weeks (.); Gestational Age Ultrasound (.); Insulin Dep Diabetes No (.); OSBR Risk 1IN 10000 (.); Results Report (.); Test Results *Screen Negative* (.)
== END ==
PROVIDERS: PCP Family Medicine; Referring Provider Obstetrics & Gynecology; Visit Provider Obstetrics & Gynecology
DX: O98.119 Syphilis complicating pregnancy, unspecified trimester (principal); A53.9 Syphilis, unspecified; Z3A.17 17 weeks gestation of pregnancy
CPT/HCPCS: 36415; 82105; 86780

== ENCOUNTER → 2021-08-08 14:45 | Outpatient (CLI) | payer OTHER, SELFPAY | PROVIDERS: PCP Family Medicine; Referring Provider Obstetrics & Gynecology; Visit Provider Obstetrics & Gynecology | DX: Z34.82 Encounter for supervision of other normal pregnancy, second trimester (principal); Z3A.20 20 weeks gestation of pregnancy; Z53.8 Procedure and treatment not carried out for other reasons ==

== ENCOUNTER → 2021-09-04 15:35 | Outpatient (CLI) | payer OTHER, SELFPAY ==
[2021-09-04 17:37] LABS: Hematocrit 33.2 % (36-46); Hemoglobin 11.1 g/dL (12.0-16.0)
[2021-09-04 18:03] LABS: GTT (PREG) 1 Hour PP 50gm Dose 117 mg/dL (76-139)
== END ==
PROVIDERS: PCP Family Medicine; Referring Provider Obstetrics & Gynecology; Visit Provider Obstetrics & Gynecology
DX: Z34.82 Encounter for supervision of other normal pregnancy, second trimester (principal); Z3A.25 25 weeks gestation of pregnancy
CPT/HCPCS: 36415; 82950; 85014; 85018